=== PATIENT | female | born 1995 | race Caucasian/White ===

== ENCOUNTER 2017-01-11 21:14 | Emergency (ER) | payer OTHER ==
[2017-01-11 21:48] VITALS: BP 101/54
--- NOTE | 2017-01-11 22:11 | RAD ---
Indication: Struck on top of foot with a softball. Pain through the tarsal region. Comparison: 3 views RIGHT foot Technique: AP, lateral, and oblique views RIGHT foot. REPORT AND IMPRESSION: Normal articular alignment. Negative for fracture. Mild soft tissue swelling over the dorsum of the foot.
--- NOTE | 2017-01-11 22:46 | UC ---
Shaun Price Janilya, scribed for Christen Hernandez MD on 01/11/17 at 2159 . Lower Extremity/Ankle HPI - HPI Summary HPI Summary: A 21 y/o female came in to [facility] presenting w/ a sudden onset of constant right foot pain due to injury that occurred today at 2100. Pt states she was playing softball when the ball stroke the top of her right foot. It is painful to stand or to walk, but pt has high pain tolerance. FHx cancer - father. - History of Current Complaint Chief Complaint: UCLowerExtremity Stated Complaint: FOOT INJURY Time Seen by Provider: 01/11/17 21:49 Hx Obtained From: Patient Hx Last Menstrual Period: Dec 2016 Onset/Duration: Sudden Onset, Lasting Hours, Still Present Severity Initially: Moderate Severity Currently: Moderate Pain Intensity: 7 Pain Scale Used: 0-10 Numeric Aggravating Factor(s): Standing, Ambulation Alleviating Factor(s): Nothing Able to Bear Weight: No - Risk Factors Gout Risk Factors: Negative DVT Risk Factors: Negative Septic Arthritis Risk Factor: Negative - Allergies/Home Medications Allergies/Adverse Reactions: Allergies Allergy/AdvReac Type Severity Reaction Status Date / Time No Known Allergies Allergy Verified 01/11/17 21:43 Home Medications: Home Medications Norethindrone Acet & Eth Estra [Microgestin 12/02] 1 tab DAILY 01/11/17 [History Confirmed 01/11/17] PMH/Surg Hx/FS Hx/Imm Hx Previously Healthy: Yes - Surgical History Surgical History: Yes Surgery Procedure, Year, and Place: March 2016 RIGHT hip. Nov 2012 LEFT hand - Family History Known Family History: Positive: Other - cancer - father - Social History Occupation: Student - [employer], on the [employer] team Alcohol Use: None Substance Use Type: None Smoking Status (MU): Never Smoked Tobacco - Immunization History Most Recent Influenza Vaccination: 2016 Review of Systems Constitutional: Negative Skin: Negative Eyes: Negative ENT: Negative Respiratory: Negative Cardiovascular: Negative Gastrointestinal: Negative Genitourinary: Negative Motor: Negative Neurovascular: Negative Musculoskeletal: Edema - right foot swelling due to injury, Other: - right foot pain Neurological: Negative Psychological: Negative All Other Systems Reviewed And Are Negative: Yes Physical Exam Triage Information Reviewed: Yes Appearance: Well-Appearing, Well-Nourished, Pain Distress Vital Signs: Initial Vital Signs Temp 97.9 F 03/01/17 21:44 Pulse 74 01/11/17 21:44 Resp 18 01/11/17 21:44 BP 101/54 01/11/17 21:44 Pulse Ox 100 01/11/17 21:44 Vital Signs Reviewed: Yes Eyes: Positive: Conjunctiva Clear ENT: Positive: Normal ENT inspection Neck: Positive: Supple Respiratory: Positive: No respiratory distress Cardiovascular: Positive: RRR, Pulses Normal, Brisk Capillary Refill Musculoskeletal: Positive: ROM Limited @ - right foot, Other: - Tenderness on dorsal aspect of foot, especially on the first metatarsal; Neurological: Positive: Alert, Muscle Tone Normal Psychological Exam: Normal Skin Exam: Normal Diagnostics - Radiology foot xray Xray Interpretation: No Acute Changes - REPORT AND IMPRESSION: Normal articular alignment. Negative for fracture. Mild soft tissue swelling over the dorsum of the foot. Radiology Interpretation Completed By: Radiologist Lower Extremity Course/Dx - Course Course Of Treatment: pt has CAM boot and dorothy; declines crutches - Differential Dx/Diagnosis Differential Diagnosis/HQI/PQRI: Contusion, Fracture (Closed), Sprain, Strain Provider Diagnoses: contusion right foot Discharge - Discharge Plan Condition: Stable Disposition: HOME Patient Education Materials: Foot Contusion (ED) Forms: *Physical Education Release Referrals: [facility] TAMIKO Caceres [Primary Care Provider] - Allan Ford MD [Medical Doctor] - Additional Instructions: You may continue to use the CAM boot and dorothy bandage. Follow up with orthopedics this week. Return to urgent care if any new or worsening symptoms. The documentation as recorded by the Shaun albarran Janilya accurately reflects the service I personally performed and the decisions made by , Christen Hernandez MD.
== END 2017-01-11 22:45 | disposition home or self-care (01) ==
LOC: UCEAST 21:14
DX: S90.31XA Contusion of right foot, initial encounter (principal); W21.07XA Struck by softball, initial encounter; Y93.64 Activity, baseball; Y92.320 Baseball field as the place of occurrence of the external cause
CPT/HCPCS: 99201; G0463

== ENCOUNTER 2017-12-20 13:28 | Emergency (ER) | payer OTHER ==
[2017-12-20 13:59] VITALS: BP 115/78
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
--- NOTE | 2017-12-20 14:26 | RAD ---
HISTORY: Cough, sputum COMPARISONS: None VIEWS: 4: Frontal dual-energy and lateral views of the chest. FINDINGS: CARDIOMEDIASTINAL SILHOUETTE: The cardiomediastinal silhouette is normal. RENNY: The renny are normal. PLEURA: The costophrenic angles are sharp. No pleural abnormalities are noted. LUNG PARENCHYMA: The lungs are clear. ABDOMEN: The upper abdomen is clear. There is no subphrenic gas. BONES AND SOFT TISSUES: No bone or soft tissue abnormalities are noted. OTHER: None. IMPRESSION: NO ACTIVE CARDIOPULMONARY DISEASE.
== END 2017-12-20 14:37 | disposition home or self-care (01) ==
LOC: UCEAST 13:28
DX: J09.X2 Influenza due to identified novel influenza A virus with other respiratory manifestations (principal); Z77.120 Contact with and (suspected) exposure to mold (toxic)
CPT/HCPCS: 71046; 87502; 87651; 99212; G0463

== ENCOUNTER 2018-01-15 15:50 | Emergency (ER) | payer OTHER ==
--- NOTE | 2018-01-15 16:10 | UC ---
Throat Pain/Nasal Armin HPI - HPI Summary HPI Summary: Pt presents with fever and sore throat since yesterday. She tells me that she had the flu about 2 weeks ago and finally improved a few days ago, until yesterday when she developed her fever and sore throat. This morning she noticed white spots on the back of her tonsils. Has been taking ibuprofen for fever and general discomfort. Denies sinus symptoms, cough, SOB, chest pain, abdominal pain, n/v/d/c. - History of Current Complaint Stated Complaint: THROAT PAIN Time Seen by Provider: 01/15/18 16:10 Hx Obtained From: Patient Hx Last Menstrual Period: 12/18/17 Onset/Duration: Sudden Onset Severity: Mild Pain Intensity: 4 Pain Scale Used: 0-10 Numeric - Allergies/Home Medications Allergies/Adverse Reactions: Allergies Allergy/AdvReac Type Severity Reaction Status Date / Time No Known Allergies Allergy Verified 01/15/18 16:13 PMH/Surg Hx/FS Hx/Imm Hx Previously Healthy: Yes - Surgical History Surgical History: Yes Surgery Procedure, Year, and Place: March 2016 RIGHT hip arthoscopy. Oct 2017 R hip arthroscopy. Nov 2012 LEFT hand repair - Family History Known Family History: Positive: Other - cancer - father - Social History Occupation: Student Lives: Dormitory/Roommates Alcohol Use: Occasionally Substance Use Type: None Smoking Status (MU): Never Smoked Tobacco - Immunization History Most Recent Influenza Vaccination: 2015 Review of Systems Constitutional: Fever Skin: Negative Eyes: Negative ENT: Sore Throat Respiratory: Negative Cardiovascular: Negative Gastrointestinal: Negative Neurological: Negative Psychological: Negative All Other Systems Reviewed And Are Negative: Yes Physical Exam - Summary Physical Exam Summary: GENERAL: NAD. WDWN. No pain distress. SKIN: No rashes, sores, ulcers, masses, lesions. No clubbing or cyanosis. HEENT: Head: AT/NC Eyes: Conjunctiva clear without inflammation or discharge. Ears: Hearing grossly normal. TMs intact, no bulging, erythema, or edema. Nose: Nasal mucosa pink and moist. NTTP maxillary and frontal sinus. Throat: Posterior oropharynx mild erythema and 2+ tonsillar enlargement. Moderate white exudates on b/l tonsils. Uvula midline. No hoarse voice or muffled voice. NECK: Anterior LAD mildly TTP. Supple. CHEST: CTAB. No r/r/w. No accessory muscle use. Breathing comfortably and in no distress. CV: RRR. Without m/r/g. Pulses intact. Brisk cap refill. NEURO: Alert. CN II-XII grossly intact. PSYCH: Age appropriate behavior. Triage Information Reviewed: Yes Throat Pain/Nasal Course/Dx - Course Course Of Treatment: POC strep negative. Will test for mono and tx with azithromycin. - Differential Dx/Diagnosis Provider Diagnoses: Pharyngitis Discharge - Discharge Plan Condition: Stable Disposition: HOME Prescriptions: Azithromycin TAB* [Zithromax TAB (Z-KARL) 250 mg #6 tabs] 2 tab PO .TODAY, THEN 1 DAILY #1 karl Patient Education Materials: Mononucleosis (ED), Pharyngitis (ED) Referrals: No Primary Care Phys,NOPCP [Primary Care Provider] - Additional Instructions: If you develop a fever, shortness of breath, chest pain, new or worsening symptoms - please call your PCP or go to the ED.
[2018-01-15 16:13] VITALS: BP 123/78
[2018-01-15 18:29] LABS: ABS Basophils 0 10^3/ul (0-0.2); ABS Eosinophils 0.1 10^3/ul (0-0.6); ABS Lymphocytes 1.2 10^3/ul (1.0-4.8); ABS Monocytes 1.1 10^3/ul (0-0.8); ABS Neutrophils 8.1 10^3/ul (1.5-7.7); ABS Nucleated RBC 0 10^3/ul; Hematocrit 39 % (35-47); Hemoglobin 12.6 g/dl (12.0-16.0); Lymphocyte % 11.4 % (25-47); Mean Corpuscular HGB Conc 33 g/dl (31-36); Mean Corpuscular Hemoglobin 27 pg (27-31); Mean Corpuscular Volume 82 fL (80-97); Mean Platelet Volume 9 um3 (7.4-10.4); Nucleated Red Blood Cells % 0; Platelet Count 193 10^3/ul (150-450); Red Cell Distribution Width 15 % (10.5-15); White Blood Count 10.5 10^3/ul (3.5-10.8)
== END 2018-01-15 16:40 | disposition home or self-care (01) ==
LOC: UCEAST 15:50
DX: J02.9 Acute pharyngitis, unspecified (principal)
CPT/HCPCS: 36415; 85025; 86308; 87651; 99212; G0463